=== PATIENT | male | born 1980 | race Caucasian/White ===

== ENCOUNTER 2020-05-05 07:37 | Outpatient (CLI) | payer OTHER, SELFPAY ==
--- NOTE | 2020-05-05 08:02 | CT_ITS ---
WS: [id number] CT HEAD NONCONTRAST HISTORY: WORSE HEADACHE OF LIFE TECHNIQUE: Contiguous axial imaging performed through the brain in 2.5 mm imaging. Bone and soft tiss ue windows. Sagittal and coronal reformats reviewed. All CT scans at [facility] use at le ast one of these dose optimization techniques: automated exposure control; mA and/or kV adjustment pe r patient size (includes targeted exams where dose is matched to clinical indication); or iterative r econstruction. DLP: 925.91 mGycm COMPARISON: None available. Tiny focus measuring 3 mm of increased density in the cortex of the RIGHT frontal lobe. No prior stud ies for comparison. This may be an artifact, calcification or tiny area of hemorrhage. No sulcal effa cement. No atrophy or prior infarcts or herniation. Ventricles: Normal size with no hydrocephalus. Paranasal sinuses: There is significant mucoperiosteal thickening involving the ethmoid sinuses bilat erally with extension into the frontal ethmoid recess. Mastoid air cells: Well pneumatized. Calvarium and scalp: Skull is intact with no soft tissue edema or swelling. CT/CT head wo con* [id number] IMPRESSION: 1. Tiny focus of increased density in the RIGHT frontal cortex. Very nonspecif ic. Differential includes calcification, artifact or tiny parenchymal hemorrhag e. No adjacent sulcal effacement or edema. Recommend short-term follow-up head CT to confirm stability or resolution. Consider [address] 2. Severe ethmoid sinusitis.
== END 2020-05-05 07:38 | disposition home or self-care (01) ==
LOC: RADWPI 07:42
PROVIDERS: PCP Family Medicine; Visit Provider Family Medicine
DX: R51.9 Headache, unspecified (principal); J32.2 Chronic ethmoidal sinusitis
CPT/HCPCS: 70450

== ENCOUNTER 2020-05-13 14:25 | Outpatient (CLI) | payer OTHER, SELFPAY ==
--- NOTE | 2020-05-13 | CT_ITS ---
WS: [id number] CT HEAD TECHNIQUE: Noncontrast CT of the head obtained from the skullbase to the vertex. CLINICAL INFORMATION: WORST HEADACHE OF LIFE COMPARISON: May 05, 2020 DLP: 992.[address] scans at [facility] use at least one of these dose optimization techniques: automat ed exposure control; mA and/or kV adjustment per patient size (includes targeted exams where dose is matched to clinical indication); or iterative reconstruction. FINDINGS: No evidence of intracranial hemorrhage or mass effect. Ventricular system and basal cisterns are booth nt. No extra-axial fluid collections. No evidence of mass or mass effect. Normal jerez-white differen tiation. Mastoid air cells well aerated. Partial opacification of the ethmoid air cells with fluid and mucosal thickening. CT/CT head wo con* [id number] IMPRESSION: 1. No evidence of intracranial hemorrhage or mass effect. 2. Previously described tiny focus of increased attenuation right frontal lobe has resolved. 3. Normal jerez-white differentiation. 4. Ethmoid sinusitis with fluid and mucosal thickening.
== END 2020-05-13 14:26 | disposition home or self-care (01) ==
LOC: RADWPI 14:29
PROVIDERS: PCP Family Medicine; Visit Provider Family Medicine
DX: R51.9 Headache, unspecified (principal); J32.2 Chronic ethmoidal sinusitis
CPT/HCPCS: 70450

== ENCOUNTER 2024-05-07 20:00 | Outpatient (CLI) | payer OTHER, SELFPAY | END 2024-05-07 20:01 | disposition home or self-care (01) | LOC: SLEEP 23:43 | PROVIDERS: PCP Family Medicine; Visit Provider Family Medicine | DX: G47.33 Obstructive sleep apnea (adult) (pediatric) (principal) | CPT/HCPCS: 95810 ==

== ENCOUNTER 2024-09-02 20:00 | Outpatient (CLI) | payer OTHER, SELFPAY | END 2024-09-02 20:01 | disposition home or self-care (01) | LOC: SLEEP 09-03 04:21 | PROVIDERS: PCP Family Medicine; Visit Provider Family Medicine | DX: G47.33 Obstructive sleep apnea (adult) (pediatric) (principal) | CPT/HCPCS: 95811 ==